=== PATIENT | male | born 1970 | race Caucasian/White ===

== ENCOUNTER 2017-09-17 11:10 | Day surgery (SDC) | payer OTHER ==
[~2017-09-17 11:10] MED LIST: Acetaminophen TAB* 325 MG PO PRN; Buffered Lidocaine 0.9% SYRIN* 5 ML/SYR SYRINGE INTRADERM ONE
[2017-09-17] MEDS ORDERED: Midazolam* 1 MG/ML 2 ML VIAL (2 MG) ONE ×2 (12:34→13:25)
[2017-09-17] MEDS ORDERED: Cyclopentolate 1% OPTH.SOL* 2 ML BTL ONE (12:34)
[2017-09-17] MEDS ORDERED: fentaNYL* 50 MCG/ML 2 ML VIAL (100 MCG VIAL) ONE (12:34)
[2017-09-17] MEDS ORDERED: Phenylephrine 2.5% OPTH.SOL* 2 ML BTL ONE (12:34)
[2017-09-17] MEDS ORDERED: Neomycin/Polymy/Dex OPHTH.OIN* 3.5 GM ONE (12:34)
[2017-09-17] MEDS ORDERED: Ketorolac 0.5% OPHTH (NF) 0.5 % 5 ML BTL ONE (12:34)
[2017-09-17] MEDS ORDERED: Lidocaine 1% MPF* 2 ML VIAL ONE (12:34)
[2017-09-17] MEDS ORDERED: Tetracaine 0.5% OPTH.SOL 4 ML* 1 DROP BTL ONE (12:34)
[2017-09-17] MEDS ORDERED: Tropicamide 1% OPTH.SOL* BTL ONE (12:34)
[2017-09-17 14:12] VITALS: BP 151/75
--- NOTE | 2017-09-18 11:25 | OP ---
DATE OF OPERATION: 09/17/17 [facility] DATE OF : 74 SURGEON: Deejay Amador MD. CREATIVE SERVICES MANAGER: None. ANESTHESIA: Topical with intravenous sedation. PRE-OP DIAGNOSES: High myopia and cataract, right eye; morbidly obese. POST-OP DIAGNOSES: High myopia and cataract, right eye; morbidly obese. OPERATIVE PROCEDURE: Phacoemulsification and cataract extraction with posterior chamber intraocular lens implant, right eye. COMPLICATIONS: None. BLOOD LOSS: None. DESCRIPTION OF PROCEDURE: The patient was brought to the operating room and transferred to an operating bed as a standard cataract stretcher would not support his weight. He was positioned carefully at the operating bed to secure and support him. The microscope was placed in position, as were the foot pedals that allowed the surgeon to access the patient's right eye. A drop of tetracaine was placed in the patient's right eye. The patient was prepped and draped in the usual sterile fashion for ophthalmic surgery. Attention was directed to the right eye where speculum was placed. A paracentesis was created at the 11 o'clock position and 0.1 cc of 1% preservative-free lidocaine was injected into the anterior chamber, followed by DisCoVisc. The eye was digitally stabilized. A 2.75 mm keratome was used to create a triplanar clear corneal incision at the 8:30 position. A continuous curvilinear capsulorrhexis was created with a cystotome and Utrata forceps. BSS on a cannula was used to hydrodissect the lens from the capsule. Phacoemulsification was performed in a [id number] technique to create 4 fragments, which were removed. Cortical material was removed with irrigation and aspiration. DisCoVisc was used to inflate the capsular bag. An MN60MA 3-piece lens was folded with heavy forceps and transferred to an insertion forceps. The eye was stabilized with a 0.12 through the paracentesis and the lens introduced into the capsule through the wound. The trailing haptic was dialed into place using a Sim hook. Irrigation and aspiration was performed to remove viscoelastic from the eye. BSS on a cannula was used to hydrate the corneal stroma and seal the wound. At the end of the case, the pupil was round and the lens was centered and stable. The eye pressure appeared normal and the wound was watertight. Topical Maxitrol ointment was placed on the surface of the eye. The eye was closed, patched, and shielded. The patient was recovered in the operating room and then transferred to a wheelchair and brought out to the recovery room. He was given postop instructions and a followup appointment. [id number]/[facility] #: [id number] PATO
== END 2017-09-17 14:02 | disposition home or self-care (01) ==
LOC: OREAST 11:10
PROVIDERS: ATTEND Ophthalmology
DX: H25.11 Age-related nuclear cataract, right eye (principal); H52.11 Myopia, right eye; H57.9 Unspecified disorder of eye and adnexa; E66.01 Morbid (severe) obesity due to excess calories; Z88.8 Allergy status to other drugs, medicaments and biological substances
CPT/HCPCS: A9270-GY; J2250; J3010; V2632

== ENCOUNTER 2017-09-24 11:50 | Day surgery (SDC) | payer OTHER ==
[~2017-09-24 11:50] MED LIST changes: -Acetaminophen TAB* 325 MG PO PRN
[2017-09-24] MEDS ORDERED: Lidocaine 2% PF * 5 ML VIAL ONE (14:03)
[2017-09-24] MEDS ORDERED: Propofol* 10 MG/ML 20 ML BTL IV PUSH ONE (14:03)
[2017-09-24 14:16] VITALS: BP 149/85
[2017-09-24] MEDS ORDERED: Neomycin/Polymy/Dex OPHTH.OIN* 3.5 GM ONE (14:21)
[2017-09-24] MEDS ORDERED: Cyclopentolate 1% OPTH.SOL* 2 ML BTL ONE (14:21)
[2017-09-24] MEDS ORDERED: Phenylephrine 2.5% OPTH.SOL* 2 ML BTL ONE (14:21)
[2017-09-24] MEDS ORDERED: Lidocaine 1% MPF* 2 ML VIAL ONE (14:21)
[2017-09-24] MEDS ORDERED: Ketorolac 0.5% OPHTH (NF) 0.5 % 5 ML BTL ONE (14:21)
[2017-09-24] MEDS ORDERED: Tetracaine 0.5% OPTH.SOL 4 ML* 1 DROP BTL ONE (14:21)
[2017-09-24] MEDS ORDERED: Tropicamide 1% OPTH.SOL* BTL ONE (14:21)
--- NOTE | 2017-09-25 07:58 | OP ---
DATE OF OPERATION: 09/24/17 - [facility] DATE OF : 74 SURGEON: Dr. Amador. AX SURVEY WORKER: None. ANESTHESIA: Topical with intravenous sedation. PRE-OP DIAGNOSES: High myopia and cataract, left eye. POST-OP DIAGNOSIS: High myopia and cataract, left eye. OPERATIVE PROCEDURE: Phacoemulsification and cataract extraction with posterior chamber intraocular lens implant, left eye. COMPLICATIONS: None. BLOOD LOSS: None. DESCRIPTION OF PROCEDURE: The patient was brought to the operating room and placed on an operative bed instead of a stretcher because of the patient's size and weight. He was positioned reasonably such that visibility and comfort for both the surgeon and the patient could be achieved. A drop of Tetracaine was placed in the patient's left eye. The patient was given a small amount of intravenous sedation. A speculum was placed in the left eye after the left eye was prepped and draped in the usual sterile fashion for ophthalmic surgery. A paracentesis was created at the 5 o'clock position. 0.1 cc of 1% preservative- free Lidocaine was injected into the anterior chamber followed by DisCoVisc. The eye was digitally stabilized and a 2.75 mm keratome was used to create a triplanar clear corneal incision at the 3 o'clock position. A continuous curvilinear capsulorrhexis was created with a cystotome and Utrata forceps. BSS on a cannula was used to hydrodissect the lens from the capsule. Phacoemulsification was performed in a [id number] technique to create 4 fragments, which were removed. Residual cortical material was removed with irrigation and aspiration. DisCoVisc was used to inflate the capsular bag. The wound was enlarged ever so slightly with a keratome. An MN60MA 3.0 diopter lens was manually folded outside of the eye. A 0.124 set was used to stabilize the eye for the paracentesis and the lens was inserted into the capsular bag. The lens fernandez was removed. A Sim hook was used to dunk the trailing haptic into the capsular bag and rotate it into a proper alignment. Irrigation , aspiration was then performed of viscoelastic from the eye. BSS on a cannula was used to hydrate the corneal stroma and seal the wound. At the end of the case, the pupil was round, the lens was centered, the eye pressure was normal, and the wound was water tight. The speculum was removed and topical Maxitrol ointment was placed on the surface of the eye. The eye was closed, patched, and shielded and the patient was sent to the recovery room in stable condition with postop instructions and followup appointment given. [id number]/[facility] #: [id number] PATO
== END 2017-09-24 14:14 | disposition home or self-care (01) ==
LOC: OREAST 11:50
PROVIDERS: ATTEND Ophthalmology
DX: H25.12 Age-related nuclear cataract, left eye (principal); H44.22 Degenerative myopia, left eye; E66.01 Morbid (severe) obesity due to excess calories; Z68.44 Body mass index [BMI] 60.0-69.9, adult; M19.90 Unspecified osteoarthritis, unspecified site; G47.33 Obstructive sleep apnea (adult) (pediatric)
CPT/HCPCS: A9270-GY; J2704; V2632